=== PATIENT | female | born 1985 | race Caucasian/White ===

== ENCOUNTER 2018-09-16 19:18 | Emergency (ER) | payer OTHER ==
[~2018-09-16] VITALS: Wt 56.8 kg
[~2018-09-16 19:18] MED LIST: FERR27TA PO; PREN1TAB17 PO
[2018-09-16 19:23] VITALS: BP 134/79; PULSE 91; RESP 18
[2018-09-16] MEDS ORDERED: ONDANSETRON 4 MG INJ IV ONE (21:00)
[2018-09-16] MEDS ORDERED: HYDROmorphONE 2 MG/ML SYG IV ONE (21:00)
[2018-09-16] MEDS ORDERED: LIDOCAINE 1% (MDV) 20 ML INJ SC ONE (22:00)
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
[2018-09-16] MEDS ORDERED: CEPH-443 PO (22:07)
[2018-09-16] MEDS ORDERED: HYDR-4011 PO (22:07)
[2018-09-16] MEDS ORDERED: LIDOCAINE 2% VISC 15 ML CUP PO ONE (23:00)
== END 2018-09-16 23:47 | disposition home or self-care (01) ==
LOC: E/R 19:18
DX: S81.011A Laceration without foreign body, right knee, initial encounter (principal); S09.90XA Unspecified injury of head, initial encounter; R07.9 Chest pain, unspecified; R40.2142 Coma scale, eyes open, spontaneous, at arrival to emergency department; R40.2252 Coma scale, best verbal response, oriented, at arrival to emergency department; R40.2362 Coma scale, best motor response, obeys commands, at arrival to emergency department; R51 Headache; V89.2XXA Person injured in unspecified motor-vehicle accident, traffic, initial encounter
CPT/HCPCS: 12002; 70450; 71045; 72125; 73562; 80307; 96374; 96375; J1170; J2405; Z7502; Z7610

== ENCOUNTER 2018-09-19 00:08 | Emergency (ER) | payer OTHER ==
[~2018-09-19] VITALS: Ht 152.4 cm; Wt 75.0 kg
[~2018-09-19 00:08] MED LIST changes: +CEPH-443 PO; +HYDR-4011 PO
[2018-09-19 00:22] VITALS: Ht 152.4 cm; Wt 75.0 kg
--- NOTE | 2018-09-19 04:34 | ERD ---
ER Documentation Chief Complaint Chief Complaint bib self, cc: right knee pain x fall, right knee stitches HPI This is a 32-year-old female who presents here in emergency department with co mplaints of right knee wound check. LMP: Denies headache, head injury, loss of consciousness, dizziness, neck pain, neck stiffness, throat pain, difficulty swallowing, difficulty breathing lying flat, shoulder pain, chest pain, back pain, abdominal pain, nausea, vomiting, constipation, diarrhea, urinary symptoms, or possibility being , loss of bowel and bladder control, trauma, injury, falls, difficulty walking due to pain, numbness or tingling sensation, calf pain, recent travel, recent major surgery in the last 3 weeks, calf pain, recent long travel, recent exposure to any illness, recent antibiotic use in the last 3 months, fever, chills, seizures. Past medical history: Surgical history: Social: Denies smoking, use of alcoholic beverages, use of illegal drugs. ROS All systems reviewed and are negative except as per history of present illness. Medications Home Meds Active Scripts Neomycin Camarena/Bacitrac Zn/Poly (Triple Antibiotic Ointment) 1 Each Oint.pack, 1 EACH TP DAILY, #1 TUB Prov:PASILABAN,KLAR F 09/19/18 Ibuprofen* (Motrin*) 800 Mg Tab, 800 MG PO Q6H PRN for PAIN AND OR ELEVATED TEMP, #30 TAB Prov:PASILABAN,KLAR F 09/19/18 Hydrocodone/Acetaminophen ([place] 5-325 Tablet) 1 Each Tablet, 1 TAB PO Q6H PRN for PAIN, #12 TAB Prov:ADRIANA AGUILAR DO 09/16/18 Cephalexin* (Keflex*) 500 Mg Capsule, 500 MG PO QID for 7 Days, CAP Prov:LEKKOS,APOSTOLOS A. DO 09/16/18 Reported Medications Ferrous Sulfate (Iron) 1 Tab Tablet, 1 TAB PO DAILY 08/25/13 Vit-Iron Fumarate-FA ( Tablet) 1 Each Tablet, 1 EACH PO DAILY 08/25/13 Allergies Allergies: Coded Allergies: No Known Allergies (Unverified Allergy, Unknown, 01/11/15) PMhx/Soc Medical and Surgical Hx: pt denies Medical Hx, pt denies Surgical Hx Hx Alcohol Use: Yes (ALCOHOL TODAY ) Hx Substance Use: No Hx Tobacco Use: No Smoking Status: Never smoker Physical Exam Vitals Physical Exam Const: No acute distress Head: Atraumatic Eyes: Normal Conjunctiva ENT: Normal External Ears, Nose and Mouth. Neck: Full range of motion. No meningismus. Resp: Clear to auscultation bilaterally Cardio: Regular rate and rhythm, no murmurs Abd: Soft, non tender, non distended. Normal bowel sounds Skin: No petechiae or rashes Back: No midline or flank tenderness Ext: No cyanosis, or edema. Right knee: No dehiscence to the suture site. No deformity. Good and full range of motion. No calf tenderness bilaterally. Left knee: Unremarkable. No neurovascular deficit. Neur: Awake and alert. No neurological deficit. Psych: Normal Mood and Affect Procedures/MDM Diagnostic tests: Clinical exam. Right knee: Stitches are intact. X3. Treatment: Not applicable. Re-evaluation: No neurovascular deficit. Differential diagnosis I have low suspicion for septic joint, deep space infection, dehiscence. Final diagnosis: Wound check. Prescription: Triple antibiotic. Follow-up with PCP in the next 24-48 hours. Come back on September 27, 2018 for removal of sutures. Come back here in the emergency department for any new symptoms or any worsening symptoms. All questions and concerns were answered. Patient and family members verbalized understanding and agreed with plan of care. Hemodynamically stable on discharge. Departure Diagnosis: Primary Impression: Encounter for wound re-check Condition: Stable Additional Instructions: Follow-up with PCP in the next 24-48 hours. Come back on September 27, 2018 for removal of sutures. Come back here in the emergency department for any new symptoms or any worsening symptoms. TI RAMOS September 19, 2018 04:34
[2018-09-19] MEDS ORDERED: IBUP800T48 PO (04:48)
[2018-09-19] MEDS ORDERED: NEOM1PAC TP (04:49)
[2018-09-19 05:46] VITALS: BP 131/73; PULSE 71; RESP 18
== END 2018-09-19 05:47 | disposition home or self-care (01) ==
LOC: FTE 00:08
DX: Z48.01 Encounter for change or removal of surgical wound dressing (principal)
CPT/HCPCS: 99283